=== PATIENT | female | born 1945 | race Caucasian/White ===

== ENCOUNTER → 2017-07-21 | Outpatient (REF) | LOC: ZLAB.WCH 18:05 | DX: Z01.89 Encounter for other specified special examinations (principal) ==

== ENCOUNTER 2017-11-13 12:47 | Inpatient (IN) | payer MEDICARE, BC ==
[~2017-11-13] VITALS: Ht 170.2 cm; Wt 76.8 kg
[2017-12-15] MEDS ORDERED: ARICEPT10 MG PO (08:01)
[2017-12-15] MEDS ORDERED: TOPROL XL100 MG PO (08:02)
[2017-12-15] MEDS ORDERED: NORVASC 10MG10 MG PO (08:20)
[2017-12-15] MEDS ORDERED: HCTZ 25MG TAB25 MG PO (08:20)
[2017-12-15] MEDS ORDERED: XANAX 0.5MG0.5 MG PO (08:20)
[2017-12-15] MEDS ORDERED: SYNTHROID0.137 MG PO (08:21)
[2017-12-15] MEDS ORDERED: FISH OIL 500 M1 EAC1 PO (08:22)
[2017-12-15] MEDS ORDERED: KLOR-CON 1010 MEQ PO (08:22)
[2017-12-15] MEDS ORDERED: ASPIRIN E.C. 8181 MG PO (08:22)
[2017-12-15] MEDS ORDERED: MELAT3MGTAB PO (08:23)
[2017-12-15] MEDS ORDERED: OSCAL 500 TAB500 MG PO (08:24)
[2017-12-15] MEDS ORDERED: VITAMIND3 5000 PO (08:26)
[2017-12-16] VITALS (9 sets, daily range): BP systolic 103–137; BP diastolic 61–89; PULSE 60–78; TEMP 97.3–98.4
[2017-12-16] MEDS ORDERED: VITAMIN C500 MG PO (05:46)
[2017-12-17 00:17] VITALS: BP 110/59; PULSE 62; TEMP 98.4
[2017-12-17 03:59] VITALS: BP 105/57; PULSE 70; TEMP 98.7
[2017-12-17 07:14] LABS: HEMOGLOBIN 10.3 g/dl (12.5-16.0)
[2017-12-17 07:17] LABS: HEMATOCRIT 29.7 % (37.0-47.0)
[2017-12-17 08:21] VITALS: BP 111/67; PULSE 59; TEMP 98.4
[2017-12-17 11:41] VITALS: BP 109/71; PULSE 60; TEMP 97.6
[2017-12-17 16:12] VITALS: BP 109/64; PULSE 59; TEMP 97.8
[2017-12-17 20:10] VITALS: BP 103/59; PULSE 57; TEMP 98.4
[2017-12-18 04:59] VITALS: BP 110/60; PULSE 68; TEMP 99.1
[2017-12-18] MEDS ORDERED: ASPI325T6 PO (06:38)
[2017-12-18] MEDS ORDERED: NORCO 325 MG-51 TAB PO (06:38)
[2017-12-18] MEDS ORDERED: ROXICODONE 55 MG/TAB PO (06:39)
[2017-12-18] MEDS ORDERED: SENOKOT S 50 MG1 TAB PO (06:39)
[2017-12-18 07:57] LABS: HEMATOCRIT 27.4 % (37.0-47.0); HEMOGLOBIN 9.4 g/dl (12.5-16.0)
[2017-12-18 09:14] VITALS: BP 110/67; PULSE 63; TEMP 97.8
[2017-12-18 13:17] VITALS: BP 97/50; PULSE 62; TEMP 97.8
== END 2017-12-18 14:04 | disposition home or self-care (01) | DRG 470 ==
LOC: JCC 12-16 05:12
PROVIDERS: Orthopaedic Surgery
PROC: 0QPC04Z Removal of Internal Fixation Device from Left Lower Femur, Open Approach (ICD-10-PCS; 2017-12-16)
PROC: 0QPH04Z Removal of Internal Fixation Device from Left Tibia, Open Approach (ICD-10-PCS; 2017-12-16)
PROC: 0SRD0J9 Replacement of Left Knee Joint with Synthetic Substitute, Cemented, Open Approach (ICD-10-PCS; principal; 2017-12-16 07:30)
DX: M17.12 Unilateral primary osteoarthritis, left knee (principal); I10 Essential (primary) hypertension
CPT/HCPCS: A4314; A4315; A9284; C1713; C1776; J0690; J1100; J2250; J2704; J3010; J7030; J7120

== ENCOUNTER → 2017-12-15 | Outpatient (CLI) | payer MEDICARE, BC ==
[~2017-12-15] MED LIST: ARICEPT10 MG PO; ASPIRIN E.C. 8181 MG PO; FISH OIL 500 M1 EAC1 PO; HCTZ 25MG TAB25 MG PO; KLOR-CON 1010 MEQ PO; MELAT3MGTAB PO; NORVASC 10MG10 MG PO; OSCAL 500 TAB500 MG PO; SYNTHROID0.137 MG PO; TOPROL XL100 MG PO; VITAMIN C500 MG PO; VITAMIND3 5000 PO; XANAX 0.5MG0.5 MG PO
== END ==
LOC: COL.LAB 11:03
DX: Z01.812 Encounter for preprocedural laboratory examination (principal)

== ENCOUNTER → 2017-12-15 | Outpatient (REF) ==
[2017-12-15 11:45] LABS: CALCIUM 9.6 mg/dL (8.4-10.2); CREATININE, serum 0.77 mg/dL (0.52-1.25); POTASSIUM 3.6 mmol/L (3.4-5.0)
== END ==
LOC: ZLAB.WCH 11:31
PROVIDERS: Nurse Practitioner Family
DX: Z01.89 Encounter for other specified special examinations (principal)

== ENCOUNTER → 2018-10-15 | Outpatient (REF) ==
[~2018-10-15] MED LIST changes: +ASPI325T6 PO; +NORCO 325 MG-51 TAB PO; +ROXICODONE 55 MG/TAB PO; +SENOKOT S 50 MG1 TAB PO
[2018-10-15 10:49] LABS: THYROID STIMULATING HORMONE 6.97 uIU/mL (0.465-4.680)
== END ==
LOC: ZLAB.WCH 09:58
PROVIDERS: Physician Assistant
DX: Z01.89 Encounter for other specified special examinations (principal)